=== PATIENT | male | born 1995 | race African-American/Black ===

== ENCOUNTER 2017-01-24 23:47 | Observation (INO) | payer OTHER ==
[~2017-01-24] VITALS: Ht 172.7 cm; Wt 103.0 kg
[~2017-01-24 23:47] MED LIST: ALBUTEROL2.5 MG/3 M IH; BACTRIM,SEPT1 TABLET PO; FIORICET,ESG1 TABLET PO; HYDROCODON-ACE1 EAC7 PO; KEPPRA1000 MG PO; KEPPRA500 MG PO; KEPPRA750 MG PO; LAMICTAL100 MG PO; LEVETIRACETAM250 MG PO; LEVETIRACETAM500 MG PO; LEXAPRO10 MG PO; MOTRIN600 MG PO; MOTRIN800 MG PO; NAPROXEN500 M1 PO; OXCARBAZEPINE300 MG PO; PANTOPRAZOLE SO40 MG PO; PERCOCET 5/31 TABLET PO; POLYTRIM EYE DR10 ML RIGHT EYE; PULMICORT0.5 MG/21 IH; TRILEPTAL300 MG PO; TRILEPTAL600 MG PO; TYLENOL EXTRA500 MG PO; VALIUM2 MG PO; VENTOLIN HFA18 GM IH; VIMPAT100 MG PO; ZOFRAN ODT4 MG PO
[2017-01-25 00:49] LABS: CHLORIDE 102 mEq/L (99-109); POTASSIUM 3.8 mEq/L (3.7-5.4); SODIUM 143 mEq/L (136-147)
[2017-01-25 00:51] LABS: GLUCOSE 122 mg/dL (70-99)
[2017-01-25 00:52] LABS: ANION GAP 21 MEQ/L (2-14)
[2017-01-25 00:53] LABS: TOTAL BILIRUBIN 0.7 mg/dL (0.0-1.0)
[2017-01-25 00:54] LABS: SERUM ETHYL ALCOHOL < 10 mg/dL
[2017-01-25 00:55] LABS: ALKALINE PHOSPHATASE 78 IU/L (3-129); GFR ESTIMATE (CALCULATED) > 59 mL/min/
[2017-01-25 00:56] LABS: UREA NITROGEN (BUN) 11 mg/dL (9-23)
[2017-01-25 00:58] LABS: LIPASE 29 U/L (1.0-51.0)
[2017-01-25 01:01] LABS: HEMATOCRIT 53.2 % (38.0-50.0); MCH 28.7 PG (29.0-34.0); MCHC 32.9 G/DL (30.0-36.0); MCV 87.2 FL (86-99); MEAN PLAT.VOLUME 10.4 uM^3 (9.0-12.4); PLATELET COUNT 233 K/uL (156-360); RBC DIS.WIDTH-CV 11.6 % (11.8-14.6); RBC DIS.WIDTH-SD 37.1 % (39-53); TROP-I INTERPRETATION NEGATIVE; TROPONIN-I < 0.01 ng/mL (0.0-0.30); WHITE BLOOD COUNT 18.6 K/uL (4.1-10.2)
[2017-01-25 05:44] LABS: EOSINOPHIL (%) 0.2 % (0-5); IMMATURE GRANULOCYTE (%) 0.3 % (0.0-0.7); IMMATURE GRANULOCYTE COUNT 0.1 K/uL; INSTRUMENT ABS NEUTROPHIL CT 14.3 K/uL; LYMPHOCYTE COUNT 3.3 K/uL (1.0-2.8); MONOCYTE (%) 6.2 % (3-12); MONOCYTE COUNT 1.2 K/uL (0-0.8); NEUTROPHIL (%) 75.6 % (45-76); NEUTROPHIL COUNT 14.3 K/uL (1.8-6.4)
[2017-01-25 06:10] VITALS: BP 89/53
[2017-01-25 08:20] LABS: HEMATOCRIT 42.6 % (38.0-50.0); MCHC 33.8 G/DL (30.0-36.0); MCV 85.7 FL (86-99); RBC DIS.WIDTH-CV 11.7 % (11.8-14.6); RBC DIS.WIDTH-SD 35.9 % (39-53); WHITE BLOOD COUNT 14.4 K/uL (4.1-10.2)
[2017-01-25 08:21] LABS: RED BLOOD COUNT 4.97 M/uL (4.00-5.50)
[2017-01-25 08:23] LABS: ANION GAP 7 MEQ/L (2-14); CHLORIDE 106 MEQ/L (99-109); GFR ESTIMATE (CALCULATED) > 59 mL/min/; GLUCOSE 96 mg/dL (70-99); POTASSIUM 4.1 MEQ/L (3.7-5.4); SAMPLE HEMOLYSIS CHECK 0; SAMPLE ICTERIC CHECK 0; SAMPLE LIPEMIA CHECK 0; SODIUM 139 MEQ/L (136-147); UREA NITROGEN (BUN) 10 mg/dL (9-23)
[2017-01-25 10:32] LABS: ALKALINE PHOSPHATASE 55 IU/L (3-129); DIRECT BILIRUBIN 0.1 mg/dL (0.0-0.3); TOTAL BILIRUBIN 0.6 MG/DL (0.0-1.0)
[2017-01-25 10:36] LABS: PLAT.SUFFICIENCY ADEQUATE
[2017-01-25 11:01] LABS: PLATELET COUNT 153 K/uL (156-360)
[2017-01-25] MEDS ORDERED: CLONAZEPAM1 MG PO (11:47)
[2017-01-25 11:52] VITALS: BP 123/73
[2017-01-25] MEDS ORDERED: AMOX TR-K CLV1 EAC4 PO (12:47)
== END 2017-01-25 14:40 | disposition home or self-care (01) ==
LOC: EME 23:47 → EDOF 01-25 04:09 → 5WEST 01-25 05:51
PROVIDERS: Emergency Medicine; Hospitalist
DX: J69.0 Pneumonitis due to inhalation of food and vomit (principal); G40.909 Epilepsy, unspecified, not intractable, without status epilepticus; E86.0 Dehydration; G47.33 Obstructive sleep apnea (adult) (pediatric); G43.909 Migraine, unspecified, not intractable, without status migrainosus; R01.1 Cardiac murmur, unspecified; F41.9 Anxiety disorder, unspecified; J45.909 Unspecified asthma, uncomplicated; E66.9 Obesity, unspecified; Z68.34 Body mass index [BMI] 34.0-34.9, adult; N17.9 Acute kidney failure, unspecified; D72.829 Elevated white blood cell count, unspecified
CPT/HCPCS: 71010; 71275; 73030; 80048 91; 80053; 80076; 80306 90; 81003; 83605; 83690; 84484; 85025; 85027; 87040; 93005; G0378; G0480; J0696; J2060; J7030; J7050; S0028

== ENCOUNTER 2017-06-26 17:58 | Emergency (ER) | payer OTHER ==
[~2017-06-26] VITALS: Ht 172.7 cm; Wt 97.1 kg
[~2017-06-26 17:58] MED LIST changes: +AMOX TR-K CLV1 EAC4 PO; +CLONAZEPAM1 MG PO
[2017-06-26 18:07] VITALS: BP 115/84
[2017-06-26] MEDS ORDERED: BACTRIM,SEPT1 TABLET PO (20:50)
[2017-06-27] MEDS ORDERED: KEFLEX500 MG PO (01:01)
== END 2017-06-26 21:28 | disposition home or self-care (01) ==
LOC: EME 17:58
PROC: 0H98XZZ Drainage of Buttock Skin, External Approach (ICD-10-PCS; principal; 2017-06-26)
DX: L05.91 Pilonidal cyst without abscess (principal); R56.9 Unspecified convulsions; Z88.8 Allergy status to other drugs, medicaments and biological substances
CPT/HCPCS: 99281; 99284

== ENCOUNTER 2017-06-27 00:12 | Emergency (ER) | payer OTHER ==
[~2017-06-27] VITALS: Ht 172.7 cm; Wt 100.5 kg
[2017-06-27] MEDS ORDERED: KEFLEX500 MG PO (01:01)
[2017-06-27 01:35] LABS: HEMATOCRIT 43.3 % (38.0-50.0); MCHC 34.4 G/DL (30.0-36.0); MCV 84.4 FL (86-99); MEAN PLAT.VOLUME 9.7 uM^3 (9.0-12.4); PLATELET COUNT 172 K/uL (156-360); RBC DIS.WIDTH-CV 11.9 % (11.8-14.6); RBC DIS.WIDTH-SD 36.3 % (39-53); RED BLOOD COUNT 5.13 M/uL (4.00-5.50); WHITE BLOOD COUNT 8.6 K/uL (4.1-10.2)
[2017-06-27 01:43] LABS: CHLORIDE 105 mEq/L (99-109); POTASSIUM 3.7 mEq/L (3.7-5.4)
[2017-06-27 01:44] LABS: SODIUM 139 mEq/L (136-147)
[2017-06-27 01:45] LABS: GLUCOSE 118 mg/dL (70-99)
[2017-06-27 01:47] LABS: ANION GAP 12 MEQ/L (2-14)
[2017-06-27 01:49] LABS: GFR ESTIMATE (CALCULATED) > 59 mL/min/
[2017-06-27 01:50] LABS: UREA NITROGEN (BUN) 11 mg/dL (9-23)
[2017-06-27 01:52] LABS: CREATINE KINASE 198 IU/L (1-294); TOTAL CK 198 IU/L (1-294)
[2017-06-27 02:00] LABS: CK-MB 0.9 ng/mL (0.0-4.9)
[2017-06-27 04:27] VITALS: BP 88/50
== END 2017-06-27 04:28 | disposition home or self-care (01) ==
LOC: EME 00:12
PROVIDERS: Emergency Medicine
PROC: 0RSJXZZ Reposition Right Shoulder Joint, External Approach (ICD-10-PCS; principal; 2017-06-27)
DX: R56.9 Unspecified convulsions (principal); M24.411 Recurrent dislocation, right shoulder; R50.9 Fever, unspecified; E86.0 Dehydration; L02.212 Cutaneous abscess of back [any part, except buttock and flank]; S00.572A Other superficial bite of oral cavity, initial encounter; X58.XXXA Exposure to other specified factors, initial encounter; Y92.009 Unspecified place in unspecified non-institutional (private) residence as the place of occurrence of the external cause; J45.909 Unspecified asthma, uncomplicated; K21.9 Gastro-esophageal reflux disease without esophagitis; F41.9 Anxiety disorder, unspecified; Z88.2 Allergy status to sulfonamides
CPT/HCPCS: 73020; 73030; 80048; 82550; 82553; 85027; 99281; 99285; J3010; J7030

== ENCOUNTER 2017-06-27 19:44 | Emergency (ER) | payer OTHER ==
[~2017-06-27] VITALS: Ht 172.7 cm; Wt 100.5 kg
[~2017-06-27 19:44] MED LIST changes: +KEFLEX500 MG PO
[2017-06-27 20:07] VITALS: BP 118/70
== END 2017-06-27 21:23 | disposition left against medical advice (07) ==
LOC: EME 19:44
DX: R50.9 Fever, unspecified (principal); R11.0 Nausea; Z53.21 Procedure and treatment not carried out due to patient leaving prior to being seen by health care provider

== ENCOUNTER 2017-11-30 16:22 | Emergency (ER) | payer OTHER ==
[~2017-11-30] VITALS: Ht 172.7 cm; Wt 92.3 kg
[2017-11-30] MEDS ORDERED: MOTRIN800 MG PO (20:23)
[2017-11-30 20:45] VITALS: BP 113/75
== END 2017-11-30 21:13 | disposition home or self-care (01) ==
LOC: EME 16:22
PROC: 0RSJXZZ Reposition Right Shoulder Joint, External Approach (ICD-10-PCS; principal; 2017-11-30)
DX: S43.014A Anterior dislocation of right humerus, initial encounter (principal); X50.1XXA Overexertion from prolonged static or awkward postures, initial encounter; F41.9 Anxiety disorder, unspecified; K21.9 Gastro-esophageal reflux disease without esophagitis; J45.909 Unspecified asthma, uncomplicated; Z88.2 Allergy status to sulfonamides; Z88.8 Allergy status to other drugs, medicaments and biological substances
CPT/HCPCS: 73030; 99281; 99285; J1885; J2250; J7040

== ENCOUNTER 2017-12-03 09:08 | Emergency (ER) | payer OTHER ==
[~2017-12-03] VITALS: Ht 172.7 cm; Wt 96.9 kg
[2017-12-03] MEDS ORDERED: PERCOCET 5/31 TABLET PO (13:54)
[2017-12-03 14:41] VITALS: BP 110/74
== END 2017-12-03 14:41 | disposition home or self-care (01) ==
LOC: EME 09:08
PROC: 0RSJXZZ Reposition Right Shoulder Joint, External Approach (ICD-10-PCS; principal; 2017-12-03)
DX: S43.014A Anterior dislocation of right humerus, initial encounter (principal); X50.1XXA Overexertion from prolonged static or awkward postures, initial encounter; Z87.39 Personal history of other diseases of the musculoskeletal system and connective tissue; Z88.6 Allergy status to analgesic agent; Z88.8 Allergy status to other drugs, medicaments and biological substances; Z88.2 Allergy status to sulfonamides
CPT/HCPCS: 73030; 99281; 99285; J7030

== ENCOUNTER 2018-02-11 15:05 | Emergency (ER) | payer OTHER ==
[~2018-02-11] VITALS: Ht 172.7 cm; Wt 95.1 kg
[2018-02-11 18:11] VITALS: BP 125/75
== END 2018-02-11 18:15 | disposition home or self-care (01) ==
LOC: EME 15:05
DX: M25.511 Pain in right shoulder (principal)
CPT/HCPCS: 73030; 99281; 99283